=== PATIENT | female | born 1965 | race Caucasian/White ===

== ENCOUNTER 2018-06-17 10:00 | Emergency (ER) | payer MEDICAID, OTHER ==
[~2018-06-17] VITALS: Ht 167.6 cm; Wt 113.4 kg
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
[2018-06-17] MEDS ORDERED: LISI10TA2 (10:21)
[2018-06-17] MEDS ORDERED: BREX1TAB (10:21)
[2018-06-17] MEDS ORDERED: VORT10TA (10:21)
[2018-06-17] MEDS ORDERED: ZOLP10TA5 (10:21)
[2018-06-17] MEDS ORDERED: ALPR0.5T7 (10:21)
[2018-06-17] MEDS ORDERED: IBUP-2185 PO (10:22)
[2018-06-17] MEDS ORDERED: METH4TAB PO (10:35)
[2018-06-17] MEDS ORDERED: CYCL10TA9 PO (10:35)
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
[2018-06-17 10:39] VITALS: BP 155/96
== END 2018-06-17 10:40 | disposition home or self-care (01) ==
LOC: ER FS 10:04
DX: S39.012A Strain of muscle, fascia and tendon of lower back, initial encounter (principal); Z88.0 Allergy status to penicillin; Z88.2 Allergy status to sulfonamides; Z88.5 Allergy status to narcotic agent; Z79.52 Long term (current) use of systemic steroids; X58.XXXA Exposure to other specified factors, initial encounter
CPT/HCPCS: 99281